=== PATIENT | male | born 1995 ===

== ENCOUNTER 2018-01-19 17:08 | Emergency (ER) | payer OTHER ==
[2018-01-19 17:13] VITALS: BP 121/74; PULSE 81; RESP 16; TEMP 98.6; O2SAT 99
[2018-01-19] MEDS ORDERED: Liquid Adhesive TOP ONE (17:20)
[2018-01-19] MEDS ORDERED: Tdap Vaccine 0.5 ml Vial (10-64 yrs) IM ONE ×2 (17:20→18:46)
[2018-01-19] MEDS ORDERED: Oxycodone/Acetaminophen 5/325 mg Tab PO STA (18:13)
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
== END 2018-01-19 20:20 | disposition home or self-care (01) ==
LOC: H.ER 17:08
DX: S01.81XA Laceration without foreign body of other part of head, initial encounter (principal); S20.219A Contusion of unspecified front wall of thorax, initial encounter; S09.90XA Unspecified injury of head, initial encounter; S00.83XA Contusion of other part of head, initial encounter; Y04.0XXA Assault by unarmed brawl or fight, initial encounter; Y92.89 Other specified places as the place of occurrence of the external cause